=== PATIENT | female | born 1985 | race Caucasian/White ===

== ENCOUNTER 2018-07-25 21:22 | Emergency (ER) | payer OTHER ==
[~2018-07-25] VITALS: Ht 162.6 cm; Wt 121.1 kg
[~2018-07-25 21:22] MED LIST: ALLEGRA ALLERG180 MG PO; DOLOGESIC CAPLE1 TAB PO; FIORICET TABLET1 TAB PO; FLONASE16 GM NS; GILTUSS TR TAB1 EACH PO; MEDROL4 MG PO; ORPH100T PO; OSEL75CA PO; PROVENTIL3 ML/2.5 M IH; SINGULAIR 10MG10 MG; TUSSIONEX PENNKI5 ML PO; VOLTAREM 50 MG PO; ZANTAC 7575 MG PO; ZANTAC300 MG PO; ZOFRAN4 MG PO
== END 2018-07-26 12:04 | disposition home or self-care (01) ==
LOC: ER 21:22
DX: K52.9 Noninfective gastroenteritis and colitis, unspecified (principal); E86.0 Dehydration

== ENCOUNTER 2019-12-18 06:00 | Day surgery (SDC) | payer OTHER | END 2019-12-18 09:21 | disposition home or self-care (01) | LOC: AMB-ENDOS 06:00 → ADM 01-05 12:15 | PROVIDERS: ATTEND Surgery | DX: D13.1 Benign neoplasm of stomach (principal); K44.9 Diaphragmatic hernia without obstruction or gangrene ==